=== PATIENT | female | born 1930 | race American Indian/Alaskan Native ===

== ENCOUNTER 2017-02-17 19:27 | Emergency (ER) | payer OTHER ==
[2017-02-17] MEDS ORDERED: CATAPRES PO ONE (22:15)
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
[2017-02-18 00:03] VITALS: BP 170/100
[2017-02-18] MEDS ORDERED: TYLENOL #3 PO ONE (00:10)
[2017-02-18] MEDS ORDERED: FLEXERIL PO ONE (00:10)
== END 2017-02-18 00:37 | disposition home or self-care (01) ==
LOC: ED 19:27
DX: M54.5 Low back pain (principal); M25.521 Pain in right elbow; M25.522 Pain in left elbow; I10 Essential (primary) hypertension; V49.59XA Passenger injured in collision with other motor vehicles in traffic accident, initial encounter; Y93.9 Activity, unspecified; Y92.9 Unspecified place or not applicable; Y99.9 Unspecified external cause status
CPT/HCPCS: 99282